=== PATIENT | female | born 1955 | race African-American/Black ===

== ENCOUNTER → 2016-12-05 | Outpatient (CLI) | payer OTHER ==
[~2016-12-05] MED LIST: AMBIEN 10MG10 MG PO; AMBIEN 5MG TABLE5 MG PO; CARAFATE 1GM1 G PO; CARDENE 30MG CA30 M1 PO; COLACE 100100 MG/CAP PO; CYMBALTA20 MG PO; DOMPERIDONE10 MG/CAP PO; ESTRATEST REGUL1 TAB PO; FLONASE NASAL S16 GM NS; HAIRSKINNAILS PO; LEVAQUIN 5500 MG/TA1 PO; LEVSIN0.125 M1 PO; LINZESS145CAP PO; LOPRESSOR 225 MG/TAB PO; MOTRIN 600600 MG/TAB PO; NEURONTIN300 MG PO; NEURONTIN800 MG/TAB PO; NITROLINGU0.4 MG/ACT SL; NORCO 325 MG-51 TAB PO; PERCOCET 325 MG1 TA2 PO; PREDNISONE10 MG PO; PREDNISONE20 MG PO; PREMARIN .3MG0.3 MG PO; PREMARIN 0.60.625 M1 PO; PROVENTIL0.09 MG/A1 IH; RT ADVAIR 128 DISKUS IH; SINGULAIR 110 MG/TAB PO; VASOTEC10 MG PO; VASOTEC5 MG PO; VENTOLIN INHAL6.8 GM IH; VENTOLIN0.09 MG IH; ZITHROMAX Z PA250 MG PO; ZOCOR40 MG PO; [UNRECOGNIZED DRUG - OTHER] PO
[2016-12-05 17:19] LABS: ADD PATHOLOGY DIFF REVIEW NO
[2016-12-05 17:40] LABS: HEMATOCRIT 39.9 % (37.0-47.0); HEMOGLOBIN 13.3 g/dl (12.5-16.0); MEAN CELL VOLUME 90 fl (80.0-100.0); MEAN CORPUSCULAR HEMOGLOBIN 30 pg (27.0-31.0); MEAN CORPUSCULAR HGB CONC 33 g/dl (33.0-37.0); MEAN PLATELET VOLUME 10.4 fl (7.4-10.4); PLATELET COUNT 280 K/mm3 (130-400); RED BLOOD COUNT 4.44 M/mm3 (4.10-5.30); REDCELL DISTRIBUTION WIDTH-CV 14.5 % (11.5-14.5); WHITE BLOOD COUNT 7.8 K/mm3 (4.8-10.8)
[2016-12-05 17:41] LABS: ADJUSTED CALCIUM 9.2 mg/dL (8.4-10.2); ALANINE AMINOTRANSFERASE 35 U/L (9-52); ALBUMIN 4.1 gm/dL (3.5-5.0); ALKALINE PHOSPHATASE 74 U/L (50-136); ANION GAP 9 mmol/L (7-16); BILIRUBIN,TOTAL 0.7 mg/dL (0.0-1.0); BLOOD UREA NITROGEN 7 mg/dL (7-17); CALCIUM 9.3 mg/dL (8.4-10.2); CARBON DIOXIDE 27 mmol/L (22-30); CHLORIDE 105 mmol/L (98-107); CREATININE, serum 0.75 mg/dL (0.52-1.25); GLUCOSE 84 mg/dL (74-106); POTASSIUM 3.8 mmol/L (3.4-5.0); SODIUM 141 mmol/L (137-145); TOTAL PROTEIN 7.9 gm/dL (6.4-8.2)
[2016-12-05 17:55] LABS: TROPONIN-I < 0.012 ng/mL (0.000-0.034)
[2016-12-05 19:04] LABS: BAND 6 % (0-10); EOSINOPHIL 3 % (0-4); NEUTROPHILS 40 % (42.0-75.2); PLATELET ESTIMATE NORMAL (NORMAL); TOTAL CELLS COUNTED 100
[2016-12-05 19:06] LABS: ERYTHROCYTE SEDIMENTATION RATE 21 mm/hr (0-30)
== END ==
LOC: COL.RAD 16:56 → COL.LAB 16:56
PROVIDERS: Emergency Medicine
DX: R53.1 Weakness (principal)

== ENCOUNTER → 2017-03-16 | Outpatient (CLI) | payer OTHER | LOC: COL.RAD 12:16 | DX: M51.27 Other intervertebral disc displacement, lumbosacral region (principal) ==

== ENCOUNTER → 2017-03-29 | Outpatient (CLI) | payer OTHER | LOC: COL.RAD 03-28 09:30 | DX: R10.84 Generalized abdominal pain (principal) | CPT/HCPCS: Q9967 ==

== ENCOUNTER 2017-04-10 08:51 | Day surgery (SDC) | payer OTHER ==
[2017-04-10] VITALS (9 sets, daily range): BP systolic 117–142; BP diastolic 51–77; PULSE 52–63; TEMP 97.4–97.5
[~2017-04-10] VITALS: Ht 170.2 cm; Wt 121.1 kg
[~2017-04-10 08:51] MED LIST changes: -COLACE 100100 MG/CAP PO; -MOTRIN 600600 MG/TAB PO; -PERCOCET 325 MG1 TA2 PO
[2017-04-10] MEDS ORDERED: SINGULAIR 110 MG/TAB PO (09:55)
[2017-04-10] MEDS ORDERED: PERCOCET 325 MG1 TA2 PO (13:15)
[2017-04-10] MEDS ORDERED: MOTRIN 600600 MG/TAB PO (13:16)
[2017-04-10] MEDS ORDERED: COLACE 100100 MG/CAP PO (13:16)
== END 2017-04-10 16:45 | disposition home or self-care (01) ==
LOC: SDCO 08:51
DX: K66.0 Peritoneal adhesions (postprocedural) (postinfection) (principal); G89.29 Other chronic pain; G47.33 Obstructive sleep apnea (adult) (pediatric); J45.909 Unspecified asthma, uncomplicated; I10 Essential (primary) hypertension; K22.70 Barrett's esophagus without dysplasia; N31.9 Neuromuscular dysfunction of bladder, unspecified; R00.2 Palpitations; K52.831 Collagenous colitis; G47.00 Insomnia, unspecified; M54.10 Radiculopathy, site unspecified; K44.9 Diaphragmatic hernia without obstruction or gangrene; Z85.41 Personal history of malignant neoplasm of cervix uteri; M16.10 Unilateral primary osteoarthritis, unspecified hip; M79.7 Fibromyalgia
CPT/HCPCS: J2270; J2300; J2405; J2704; J2710; J3010; J7120

== ENCOUNTER → 2017-06-21 | Outpatient (CLI) | payer OTHER ==
[~2017-06-21] MED LIST changes: +COLACE 100100 MG/CAP PO; +MOTRIN 600600 MG/TAB PO; +PERCOCET 325 MG1 TA2 PO
== END ==
LOC: MC.RAD 15:41
DX: Z12.31 Encounter for screening mammogram for malignant neoplasm of breast (principal)

== ENCOUNTER → 2017-07-19 | Outpatient (CLI) | payer OTHER | LOC: COL.RAD 08:47 | DX: S76.011A Strain of muscle, fascia and tendon of right hip, initial encounter (principal); M51.37 Other intervertebral disc degeneration, lumbosacral region; S39.012A Strain of muscle, fascia and tendon of lower back, initial encounter | CPT/HCPCS: A9585 ==

== ENCOUNTER → 2017-07-26 | Outpatient (CLI) | payer OTHER | LOC: COL.VAS 11:40 | DX: R06.02 Shortness of breath (principal) ==

== ENCOUNTER → 2017-10-17 | Outpatient (CLI) | payer OTHER | LOC: COL.RAD 10-15 11:15 | DX: M51.27 Other intervertebral disc displacement, lumbosacral region (principal); M48.07 Spinal stenosis, lumbosacral region; M54.18 Radiculopathy, sacral and sacrococcygeal region; Z98.890 Other specified postprocedural states | CPT/HCPCS: A9585 ==

== ENCOUNTER 2018-07-06 21:11 | Emergency (ER) | payer BC ==
[~2018-07-06] VITALS: Ht 170.2 cm; Wt 118.2 kg
[2018-07-06 21:14] VITALS: BP 143/66; PULSE 78; TEMP 97.9
[2018-07-06] MEDS ORDERED: AMOXICILLIN 50500 MG PO (23:52)
== END 2018-07-07 01:27 | disposition home or self-care (01) ==
LOC: COL.ER 21:11
DX: J32.9 Chronic sinusitis, unspecified (principal); M79.7 Fibromyalgia; Z23 Encounter for immunization; Z79.51 Long term (current) use of inhaled steroids

== ENCOUNTER 2018-07-11 09:49 | Day surgery (SDC) | payer BC ==
[~2018-07-11] VITALS: Ht 170.3 cm; Wt 116.5 kg
[~2018-07-11 09:49] MED LIST changes: +AMOXICILLIN 50500 MG PO
[2018-07-11 10:39] LABS: HEMATOCRIT 38.7 % (37.0-47.0); HEMOGLOBIN 13.1 g/dl (12.5-16.0); MEAN CELL VOLUME 89 fl (80.0-100.0); MEAN CORPUSCULAR HEMOGLOBIN 30 pg (27.0-31.0); MEAN CORPUSCULAR HGB CONC 34 g/dl (33.0-37.0); MEAN PLATELET VOLUME 10.5 fl (7.4-10.4); PLATELET COUNT 276 K/mm3 (130-400); RED BLOOD COUNT 4.35 M/mm3 (4.10-5.30); REDCELL DISTRIBUTION WIDTH-CV 14.6 % (11.5-14.5)
[2018-07-11 10:40] LABS: PROTHROMBIN TIME 11.7 SECONDS (9.7-12.8)
[2018-07-11 10:42] LABS: CALCIUM 8.6 mg/dL (8.4-10.2); CREATININE, serum 0.72 mg/dL (0.52-1.25); POTASSIUM 3.6 mmol/L (3.4-5.0)
[2018-07-11 11:12] VITALS: BP 104/70; PULSE 63; TEMP 97.4
[2018-07-11 11:59] VITALS: BP 123/78; PULSE 54
[2018-07-11 13:02] VITALS: BP 106/62; PULSE 58; TEMP 97
[2018-07-11 13:15] VITALS: BP 106/70; PULSE 59
[2018-07-11 13:40] VITALS: BP 107/68; PULSE 59
[2018-07-11 14:30] VITALS: BP 98/58; PULSE 59
== END 2018-07-11 15:00 | disposition home or self-care (01) ==
LOC: COL.CAR 09:49
PROVIDERS: Internal Medicine Cardiovascular Disease
DX: Z45.09 Encounter for adjustment and management of other cardiac device (principal); R07.89 Other chest pain; I47.1 Supraventricular tachycardia; Z79.899 Other long term (current) drug therapy; I10 Essential (primary) hypertension; G47.33 Obstructive sleep apnea (adult) (pediatric); Z82.49 Family history of ischemic heart disease and other diseases of the circulatory system; Z87.891 Personal history of nicotine dependence; J45.909 Unspecified asthma, uncomplicated
CPT/HCPCS: J0690; J2250; J3010; J7040

== ENCOUNTER → 2018-08-19 | Outpatient (CLI) | payer BC | LOC: MC.RAD 07-16 10:40 | DX: Z12.31 Encounter for screening mammogram for malignant neoplasm of breast (principal) ==

== ENCOUNTER 2019-02-15 20:51 | Emergency (ER) | payer BC ==
[~2019-02-15] VITALS: Ht 170.2 cm; Wt 118.2 kg
[2019-02-15 20:57] VITALS: BP 130/89; PULSE 80; TEMP 98
[2019-02-15] MEDS ORDERED: LIPITOR 10MG10 MG PO (22:20)
== END 2019-02-15 23:26 | disposition left against medical advice (07) ==
LOC: COL.ER 20:51
DX: R69 Illness, unspecified (principal)

== ENCOUNTER → 2019-08-21 | Outpatient (CLI) | payer BC ==
[~2019-08-21] MED LIST changes: +LIPITOR 10MG10 MG PO
== END ==
LOC: MC.RAD 12:45
DX: Z12.31 Encounter for screening mammogram for malignant neoplasm of breast (principal)

== ENCOUNTER 2019-11-12 08:36 | Emergency (ER) | payer BC ==
[~2019-11-12] VITALS: Ht 170.2 cm; Wt 121.8 kg
[2019-11-12 08:40] VITALS: BP 124/64; TEMP 97.1
[2019-11-12] MEDS ORDERED: LEVBID0.375 MG PO (09:11)
[2019-11-12] MEDS ORDERED: RESTORIL30 MG PO (09:11)
[2019-11-12 09:27] LABS: ALANINE AMINOTRANSFERASE 14 U/L (9-52); ALBUMIN 3.9 gm/dL (3.5-5.0); ALKALINE PHOSPHATASE 72 U/L (50-136); ANION GAP 7 mmol/L (7-16); AST,SGOT 24 U/L (15-37); BILIRUBIN,TOTAL 0.4 mg/dL (0.0-1.0); BLOOD UREA NITROGEN 9 mg/dL (7-17); C-REACTIVE PROTEIN 0.9 mg/dL (0.0-0.9); CALCIUM 8.6 mg/dL (8.4-10.2); CARBON DIOXIDE 26 mmol/L (22-30); CHLORIDE 107 mmol/L (98-107); CREATININE, serum 0.61 (0.52-1.25); GLUCOSE 88 mg/dL (74-106); POTASSIUM 3.5 mmol/L (3.4-5.0); SODIUM 140 mmol/L (137-145); TOTAL PROTEIN 7.2 gm/dL (6.4-8.2)
[2019-11-12 09:28] LABS: BASO % 0.7 % (0.0-2.0); EOS # 0.1 (0.0-0.7); EOS % 2.7 % (0-4.0); GRAN # 1.7 (1.4-6.5); GRAN % 37.2 % (42.2-75.2); HEMATOCRIT 42.1 % (37.0-47.0); HEMOGLOBIN 13.9 g/dl (12.5-16.0); MEAN CELL VOLUME 92 fl (80.0-100.0); MEAN CORPUSCULAR HEMOGLOBIN 30 pg (27.0-31.0); MEAN CORPUSCULAR HGB CONC 33 g/dl (33.0-37.0); MEAN PLATELET VOLUME 10.3 fl (7.4-10.4); MONO # 0.6 (0.1-0.6); MONO % 14.2 % (1.7-9.3); PLATELET COUNT 219 K/mm3 (130-400); REDCELL DISTRIBUTION WIDTH-CV 14.8 % (11.5-14.5)
[2019-11-12 09:37] LABS: TROPONIN-I < 0.012 ng/mL (0.000-0.035)
[2019-11-12] MEDS ORDERED: TAMIFLU 75MG75 MG PO (10:25)
[2019-11-12] MEDS ORDERED: DOXYCYCLINE HY100 MG PO (11:30)
[2019-11-12] MEDS ORDERED: PROAIR HFA0.09 MG/AC IH (11:30)
[2019-11-12] MEDS ORDERED: PREDNISONE20 MG PO (11:30)
[2019-11-12 12:15] VITALS: PULSE 74
== END 2019-11-12 12:20 | disposition home or self-care (01) ==
LOC: COL.ER 08:36
PROVIDERS: Emergency Medicine
DX: J45.909 Unspecified asthma, uncomplicated (principal); J20.9 Acute bronchitis, unspecified; J32.9 Chronic sinusitis, unspecified; J11.1 Influenza due to unidentified influenza virus with other respiratory manifestations; Z79.51 Long term (current) use of inhaled steroids; Z98.51 Tubal ligation status
CPT/HCPCS: J7030; J7512; Q9967

== ENCOUNTER → 2020-08-23 | Outpatient (CLI) | payer BC ==
[~2020-08-23] MED LIST changes: +DOXYCYCLINE HY100 MG PO; +LEVBID0.375 MG PO; +PROAIR HFA0.09 MG/AC IH; +RESTORIL30 MG PO; +TAMIFLU 75MG75 MG PO
== END ==
LOC: MC.RAD 12:46
DX: Z12.31 Encounter for screening mammogram for malignant neoplasm of breast (principal)

== ENCOUNTER → 2021-08-24 | Outpatient (CLI) | payer BC | LOC: MC.RAD 13:38 | DX: Z12.31 Encounter for screening mammogram for malignant neoplasm of breast (principal) ==

== ENCOUNTER 2022-04-24 18:57 | Emergency (ER) | payer MEDICARE ==
[~2022-04-24] VITALS: Ht 172.7 cm; Wt 118.2 kg
[2022-04-24 19:17] VITALS: TEMP 97.8
[2022-04-24 19:50] LABS: COLLECTION METHOD CLEAN CATCH
[2022-04-24 19:55] LABS: BASO # 0.1 K/mm3 (0.0-0.2); BASO % 0.6 % (0.0-2.0); EOS # 0.3 K/mm3 (0.0-0.7); EOS % 2.9 % (0.0-4.0); GRAN # 4.1 K/mm3 (1.4-6.5); GRAN % 47.4 % (42.2-75.2); HEMATOCRIT 39.1 % (37.0-47.0); HEMOGLOBIN 12.9 g/dl (12.5-16.0); LYMPH # 3.4 K/mm3 (1.2-3.4); LYMPH % 39.6 % (20.0-51.0); MEAN CELL VOLUME 91 fl (80.0-100.0); MEAN CORPUSCULAR HEMOGLOBIN 30 pg (27-31); MEAN CORPUSCULAR HGB CONC 33 g/dl (33.0-37.0); MEAN PLATELET VOLUME 10.1 fl (7.4-10.4); MONO # 0.8 K/mm3 (0.1-0.6); PLATELET COUNT 298 K/mm3 (130-400); RED BLOOD COUNT 4.31 M/mm3 (4.10-5.30); REDCELL DISTRIBUTION WIDTH-CV 15.4 % (11.5-14.5)
[2022-04-24 19:58] LABS: MUCOUS Present (NOT PRESENT); PH 5 (5-8); URINE APPEARANCE Hazy (CLEAR/HAZY); URINE BACTERIA Rare /hpf (NONE SEEN); URINE BILIRUBIN Negative (NEGATIVE); URINE BLOOD Negative (NEGATIVE); URINE COLOR Yellow (YELLOW); URINE GLUCOSE Negative (NEGATIVE); URINE KETONE Negative (NEGATIVE); URINE LEUKOCYTE ESTERASE Negative (NEGATIVE); URINE NITRATE Negative (NEGATIVE); URINE PROTEIN(semi-quant) Negative (NEGATIVE); URINE RBC 0-2 /hpf (0-2)
[2022-04-24 20:22] LABS: ALANINE AMINOTRANSFERASE 15 U/L (0-55); ALBUMIN 3.3 gm/dL (3.4-4.8); ALKALINE PHOSPHATASE 68 U/L (40-150); ANION GAP 12 mmol/L (7-16); AST,SGOT 18 U/L (5-34); BILIRUBIN,TOTAL 0.4 mg/dL (0.2-1.2); BLOOD UREA NITROGEN 6 mg/dL (10-20); CALCIUM 8.5 mg/dL (8.4-10.2); CARBON DIOXIDE 21 mmol/L (23-31); CHLORIDE 108 mmol/L (98-107); CREATININE, serum 0.81 mg/dL (0.57-1.11); GLUCOSE 84 mg/dL (70-99); LIPASE 60 U/L (8-78); POTASSIUM 3.8 mmol/L (3.5-4.5); SODIUM 141 mmol/L (136-145); TOTAL PROTEIN 7.2 gm/dL (6.2-8.1)
[2022-04-24 20:50] LABS: TROPONIN-I < 0.010 ng/mL (0.00-0.033)
[2022-04-24] MEDS ORDERED: ZITHROMAX Z PA250 MG PO (22:03)
[2022-04-24 22:22] VITALS: BP 174/97; PULSE 66
== END 2022-04-24 22:22 | disposition home or self-care (01) ==
LOC: COL.ER 18:57
PROVIDERS: Emergency Medicine
DX: R05.9 Cough, unspecified (principal)
CPT/HCPCS: J2405

== ENCOUNTER → 2022-09-22 | Outpatient (CLI) | payer MEDICARE | LOC: MC.RAD 13:16 | DX: Z12.31 Encounter for screening mammogram for malignant neoplasm of breast (principal) ==